=== PATIENT | male | born 1995 | race Caucasian/White ===

== ENCOUNTER 2025-06-22 13:16 | Emergency (ER) | payer BC ==
[2025-06-22] MEDS: Ketorolac 60 MG/2 ML SDV IM ONE (14:28)
== END 2025-06-22 15:40 | disposition home or self-care (01) ==
LOC: JD.ED 13:16
DX: M54.6 Pain in thoracic spine (principal); F17.200 Nicotine dependence, unspecified, uncomplicated
CPT/HCPCS: 72128; 72131; 96372; 99284; A9270; J1885